=== PATIENT | male | born 1990 | race African-American/Black ===

== ENCOUNTER 2016-05-18 17:57 | Inpatient (IN) | payer OTHER ==
--- NOTE | ~2016-05-18 | PN ---
Unit #: [id number] #: [id number] Patient: BRIANDA SANDERSON [id number] [facility] [address] [place] [address] [id number] MR#: [id number] NAME: BRIANDA SANDERSON ROOM: P259 Age: 26 Sex: M Admission Date: 05/18/2016 : 1990 Attending Physician: Braulio Putnam M.D. Admitting Physician: Braulio Putnam M.D. Primary Care Physician: Primary Care Physician No [facility] PROGRESS NOTES DATE OF SERVICE: 05/20/2016 DISCUSSION The patient is compliant and cooperative, making progress. No side effects from medication. Complete review of systems unremarkable. MENTAL STATUS EXAMINATION General appearance, the patient dressed casually. Attention span and concentration, fair. Oriented in place and person. Mood and affect, labile. Speech, regular rate. Thought process, goal directed. The patient denied any thoughts of harming self or others or any psychotic symptom. Recent and remote memory, poor. Insight and judgment, poor. DIAGNOSIS Mood disorder, not otherwise specified. ASSESSMENT AND PLAN Advised to continue with current medication and therapeutic protocol. We will monitor response to medication and make further adjustment of medication if needed. Dictated by... Vandana Delaney/penelope TD: 05/22/2016 21:52 JOB #: [id number] [facility] PROGRESS NOTES X Braulio Putnam MD PROGRESS NOTE
--- NOTE | ~2016-05-18 | HP ---
Unit #: [id number] #: [id number] Patient: JETT SANDERSON [id number] [place] [address] [id number] MR#: [id number] NAME: JETT SANDERSON ROOM: P259 Age: 26 Sex: M Admission Date: 05/18/2016 : 1990 Attending Physician: Braulio Putnam M.D. Admitting Physician: Braulio Putnam M.D. Primary Care Physician: Primary Care Physician No HISTORY AND PHYSICAL HISTORY OF PRESENT ILLNESS Jett is a 26 year old admitted to [address] [place] [address] with depression and verbalizing wanting to hurt himself. PAST MEDICAL HISTORY Asthma. PAST SURGICAL HISTORY Nothing reported. ALLERGIES Sulfa. SOCIAL HISTORY He does not smoke or drink alcohol. Admits to using marijuana on a daily basis. FAMILY HISTORY Medically noncontributory. REVIEW OF SYSTEMS CONSTITUTIONAL: No fever or chills. HEENT: Denies any sore throat, ear pain or runny nose. CARDIOVASCULAR: Denies chest pain, irregular heart rhythm or palpitations. CHEST: Denies shortness of breath or cough. No hemoptysis. GASTROINTESTINAL: Denies nausea, vomiting, diarrhea or chronic constipation. ENDOCRINE: Denies history of increased thirst or urination. No recent significant weight loss or gain. GENITOURINARY: Denies dysuria, frequency, or hematuria. SKIN: Denies any rashes. HEMATOLOGIC: Denies history of increased bleeding or bruising. MUSCULOSKELETAL: Denies any hot, swollen joints. No generalized muscle pain. NEUROLOGIC: Denies problems with vision or speech. No frequent, severe headaches. No numbness, tingling or weakness in any extremities. Denies loss of bladder or bowel control. CURRENT MEDICATIONS 1. Desyrel 50 mg q.h.s. 2. Celexa 20 mg q.h.s. 3. Vistaril 25 mg t.i.d. 4. Qvar b.i.d. Unit #: [id number] #: [id number] Patient: JETT SANDERSON 5. Proventil inhaler p.r.n. 6. Milk of Magnesia p.r.n. 7. Maalox p.r.n. 8. Tylenol p.r.n. PHYSICAL EXAMINATION GENERAL: Alert, well-nourished, in no apparent distress. VITAL SIGNS: Blood pressure 110/84, heart rate 62, respirations 16, temperature 98.6. WEIGHT: 170. HEIGHT: 6 feet 0 inches. SKIN: Warm and dry without rash or lesion. HEENT: Normocephalic. TMs not viewed. Oral and nasal passages clear. Conjunctivae clear. PERRLA. EOMs intact. NECK: Supple without lymphadenopathy or thyromegaly. HEART: Regular rate and rhythm without murmur. LUNGS: Clear. ABDOMEN: Soft, nontender. : Not done. EXTREMITIES: No evidence of cyanosis, clubbing or edema. Moves all without focal deficit. NEUROLOGICAL: Grossly within normal limits. Cranial Nerves: II: Visual read are intact. III, IV AND : Extraocular movements are intact. Pupils are equal, round and reactive to light. V: Facial sensation is grossly normal. VII: Facial movements and expression are normal. VIII: Auditory acuity grossly intact. IX, X: Uvula is midline. Phonation is normal. XI: Patient shrugs shoulders and turns head normally. XII: Tongue protrudes in the midline. Sensory and Motor Function: Sensory and motor sensation is grossly normal. Motor: moves all extremities well. Coordination: Gait is normal. Deep Tendon Reflexes: Intact. IMPRESSION Psychiatric admission. RECOMMENDATIONS PSYCHIATRIC: Per psychiatrist. MEDICAL: See no contraindications to participate in facility's activities. MEDICAL PROGNOSIS Good. MEDICAL CONDITION Stable. Dictated by... Michelle Flanagan P.A.-C. for Vandana Palomares/deion TD: 05/19/2016 16:22 JOB #: [id number] Unit #: [id number] #: [id number] Patient: JETT SANDERSON HISTORY AND PHYSICAL X Michelle Flanagan HISTORY AND PHYSICAL
--- NOTE | ~2016-05-18 | PN ---
Unit #: [id number] #: [id number] Patient: JETT SANDERSON [id number] [facility] [address] [place] [address] [id number] I MR#: [id number] NAME: JETT SANDERSON ROOM: P259 Age: 26 Sex: M Admission Date: 05/18/2016 : 1990 Attending Physician: Braulio Putnam M.D. Admitting Physician: Braulio Putnam M.D. Primary Care Physician: Primary Care Physician No [facility] PROGRESS NOTES DATE 05/19/2016 DISCUSSION Jett Sanderson is a 26-year-old male seen on 05/19/2016. Patient interviewed. Chart reviewed. Obtained information from nursing staff. Patient was compliant and cooperative. Mood sad, dysphoric, flat affect, withdrawn, isolative, guarded. Complete review of system unremarkable. MENTAL STATUS EXAMINATION General appearance, patient dressed casually, tall, thin built. Attention span, concentration fair. Speech regular rate. Thought process goal-directed. Patient denied any thoughts of harming self or others or any psychotic symptoms. Recent and remote memory poor. Insight and judgement poor. DIAGNOSIS Major depressive disorder, recurrent. ASSESSMENT/PLAN Advised to continue with current medication and therapeutic protocol. Will monitor response to medication and make further adjustment of medication. Dictated by... Vandana Delaney/deion TD: 05/20/2016 20:32 JOB #: [id number] [facility] PROGRESS NOTES X Braulio Putnam MD PROGRESS NOTE
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
--- NOTE | ~2016-05-18 | DS ---
Unit #: [id number] #: [id number] Patient: BRIANDA SANDERSON [id number] [facility] [address] [place] [address] [id number] MR#: [id number] NAME: BRIANDA SANDERSON ROOM: P259 Age: 26 Sex: M Admission Date: 05/18/2016 : 1990 Discharge Date: 05/22/2016 Attending Physician: Braulio Putnam M.D. Primary Care Physician: Primary Care Physician No DISCHARGE SUMMARY REASON FOR ADMISSION Suicidal ideation. DIAGNOSTIC STUDIES LABORATORY RESULTS: Remarkable for a glucose of 64. Urine drug screen positive for marijuana. HOSPITAL COURSE The patient was admitted to inpatient unit on 05/18/2016 and discharged on 05/22/2016. The patient was treated on the inpatient unit with medication management, structured milieu, psychotherapy, and expressive therapy. The patient responded well with the above modalities of treatment. Subsequently, the patient was discharged with a plan to follow up in outpatient program. DISCHARGE MEDICATIONS Celexa 20 mg daily for depression, Vistaril 25 mg t.i.d. for anxiety, and trazodone 50 mg at bedtime for sleep. DISCHARGE DIAGNOSES Psychiatric: 1. Major depressive disorder, recurrent, severe, F33.2. 2. Cannabis abuse, moderate. Secondary diagnosis: Deferred. Medical diagnosis: Asthma. Stressors: Psychosocial stressors. DISCHARGE INSTRUCTIONS The patient is to follow up in outpatient clinic as per social security assessor. CONDITION ON DISCHARGE The patient was pleasant and cooperative. Denied any psychotic symptom or any suicidal ideation. PROGNOSIS Guarded. DIET AND ACTIVITY As tolerated. Unit #: [id number] #: [id number] Patient: BRIANDA SANDERSON Dictated by... Vandana DelaneyC/amberlyl TD: 05/23/2016 18:22 JOB #: [id number] DISCHARGE SUMMARY X Braulio Putnam MD X DISCHARGE SUMMARY
--- NOTE | ~2016-05-18 | PN ---
Unit #: [id number] #: [id number] Patient: JETT SANDERSON [id number] [facility] [address] [place] [address] [id number] MR#: [id number] NAME: JETT SANDERSON ROOM: P259 Age: 26 Sex: M Admission Date: 05/18/2016 : 1990 Attending Physician: Braulio Putnam M.D. Admitting Physician: Braulio Putnam M.D. Primary Care Physician: Primary Care Physician No [facility] PROGRESS NOTES DATE OF SERVICE: 05/21/2016 DISCUSSION Jett Sanderson is a 26-year-old male, seen on 05/21/2016. The patient was compliant, cooperative. Reports mood is getting better, decrease in anxiety, sleeping better. No side effects from medication. REVIEW OF SYSTEMS Complete review of systems is unremarkable. MENTAL STATUS EXAMINATION General appearance; the patient dressed casually. Attention span and concentration, fair. Oriented in place and person. Mood and affect; sad and dysphoric. Speech, monotone. Thought process, concrete. The patient denied any thoughts of harming self or others or any psychotic symptom. Recent and remote memory, poor. Insight and judgment, poor. DIAGNOSIS Major depressive disorder, recurrent. ASSESSMENT AND PLAN Advised to continue with current medication and therapeutic protocol. We will monitor response to medication and make further adjustment of medication. Dictated by... Vandana Delaney/penelope TD: 05/23/2016 06:03 JOB #: [id number] Unit #: [id number] #: [id number] Patient: JETT SANDERSON [facility] PROGRESS NOTES X Braulio Putnam MD PROGRESS NOTE
[~2016-05-18 17:57] MED LIST: ALBUTEROL17 GM INH; STRATTERA18 MG
[2016-05-19 09:46] LABS: BASOPHIL% 0.5 % (0-2.5); EOSINOPHIL# 0.3 X10e3 (0-0.7); EOSINOPHIL% 4.2 % (0.0-7.0); HEMATOCRIT 42.2 % (38.0-50.0); HEMOGLOBIN 13.9 gm/dL (13.0-16.0); LYMPHOCYTE# 2.4 X10e3 (1.0-3.5); LYMPHOCYTE% 40.2 % (17.0-45.0); MEAN CELL VOLUME 81.8 FL (83-96); MONOCYTE# 0.5 X10e3 (0-1.0); MONOCYTE% 9.1 % (3.0-12.0); NEUTROPHIL# 2.8 X10e3 (1.5-7.1); PLATELET COUNT 274 X10e3 (140-420); RED BLOOD COUNT 5.16 X10e (3.90-5.60); RED CELL DISTRIBUTION WIDTH 13.8 % (11.0-15.5)
[2016-05-19 10:08] LABS: DIFF IND NO
[2016-05-19 10:18] LABS: THYROID STIMULATING HORMONE 0.37 uIU/ml (0.34-5.60)
[2016-05-19 10:25] LABS: FREE THYROXIN (T4) 0.94 ng/dL (0.58-1.64)
[2016-05-19 10:27] LABS: ALBUMIN SERUM 4.8 g/dL (3.5-5.0); ALKALINE PHOSPHATASE 83 U/L (32-92); ALT (SGPT) 29 U/L (10-40); AST (SGOT) 27 U/L (10-42); BILIRUBIN,TOTAL 2.2 mg/dL (0.2-2.0); BLOOD UREA NITROGEN 12 mg/dL (9-23); BUN/CREATININE RATIO 13.33; CALCIUM SERUM 10.2 mg/dL (8.4-10.2); CARBON DIOXIDE 28 mmol/L (22-31); CHLORIDE 101 mmol/L (100-111); CREATININE SERUM 0.9 mg/dL (0.6-1.4); GLOM FILT RATE Estimated ABOVE60 mL/min (>60); GLUCOSE FASTING 64 mg/dL (70-110); POTASSIUM 4.6 mmol/L (3.5-5.1); PROTEIN TOTAL SERUM 7.9 g/dL (6.0-8.3); SODIUM 140 mmol/L (135-145)
[2016-05-19 12:57] LABS: AMPHETAMINE NEG (NEG); BARBITURATES NEG (NEG); BENZODIAZEPINES NEG (NEG); COCAINE NEG (NEG); MARIJUANA POS (NEG); OPIATES NEG (NEG); TRICYCLIC ANTIDEPRESSANTS NEG (NEG); U METHADONE NEG (NEG); URINE APPEARANCE CLEAR; URINE BLOOD NEG (NEG); URINE COLOR DK YELLOW; URINE GLUCOSE NEG (NEG); URINE KETONE 2+ (NEG); URINE LEUKOCYTE ESTERASE NEG (NEG); URINE NITRATE NEG (NEG); URINE PH 5.5 (5-8); URINE PROTEIN NEG (NEG); URINE UROBILINOGEN 0.2 MG/DL (NEG)
[2016-05-19 13:03] LABS: URINE BILIRUBIN NEG (NEG)
== END 2016-05-22 11:30 | disposition home or self-care (01) | DRG 885 ==
LOC: P2L 17:57
PROVIDERS: Psychiatry & Neurology Psychiatry
DX: F33.2 Major depressive disorder, recurrent severe without psychotic features (principal); F12.20 Cannabis dependence, uncomplicated; J45.909 Unspecified asthma, uncomplicated; Z88.2 Allergy status to sulfonamides
CPT/HCPCS: 80053; 80307; 81003; 84439; 84443; 85025